=== PATIENT | female | born 1990 | race Caucasian/White ===

== ENCOUNTER 2016-12-13 20:40 | Emergency (ER) | payer MEDICAID ==
[2016-12-13 21:00] VITALS: BP 142/95
[2016-12-13] MEDS ORDERED: Cephalexin 250 MG Cap PO ONE (21:09)
--- NOTE | 2016-12-13 21:10 | EDM.PDOC ---
ED HPI GENERAL MEDICAL PROBLEM - General Chief Complaint: Lower Extremity Injury/Pain Stated Complaint: RT LEG INFECTED AND IT NUMB Time Seen by Provider: 12/13/16 20:50 Source of Information: Reports: Patient History Limitations: Reports: No Limitations - History of Present Illness INITIAL COMMENTS - FREE TEXT/NARRATIVE: Patient presents with complaints of lesion with red line moving up her leg since this morning. Quality: Reports: Stabbing, Other (intermittent pain at times. ) Improves with: Reports: None Worsens with: Reports: Movement Associated Symptoms: Denies: Nausea/Vomiting Left Lower Leg Pain Score (Numeric/FACES): 4 - Related Data Allergies Allergy/AdvReac Type Severity Reaction Status Date / Time gould flavor Allergy Intermediate Rash Verified 12/13/16 20:57 coconut oil Allergy Intermediate Rash Verified 12/13/16 20:57 raspberry [Raspberry] Allergy Intermediate Rash Verified 12/13/16 20:57 Sulfa (Sulfonamide Allergy Intermediate Rash Verified 12/13/16 20:57 Antibiotics) Latex, Natural Rubber Allergy Hives Verified 12/13/16 20:57 Home Meds: Home Meds Norethindrone-E.estradiol-Iron [Froilan Fe 1-20 Tablet] 1 each PO DAILY 12/26/15 [ History] traMADol [Ultram] 50 mg PO Q4H PRN #30 tab 12/26/15 [Rx] Past Medical History Cardiovascular History: Reports: Heart Murmur Respiratory History: Reports: Asthma HAND SINGER History: Reports: Musculoskeletal History: Reports: Fracture Psychiatric History: Reports: Depression - Infectious Disease History Infectious Disease History: Reports: C-Difficile - Past Surgical History Female Surgical History: Reports: Section Social & Family History - Tobacco Use Smoking Status *Q: Unknown Ever Smoked Second Hand Smoke Exposure: No - Caffeine Use Caffeine Use: Reports: Coffee, Tea - Alcohol Use Days Per Week of Alcohol Use: 0 - Recreational Drug Use Recreational Drug Use: No Review of Systems - Review of Systems Review Of Systems: See Below Constitutional: Denies: Chills, Diaphoresis, Fever Eyes: Reports: No Symptoms Ears: Reports: No Symptoms Nose: Reports: No Symptoms Mouth/Throat: Reports: No Symptoms Respiratory: Denies: Shortness of Breath, Wheezing, Cough, Sputum Cardiovascular: Reports: No Symptoms GI/Abdominal: Reports: No Symptoms Genitourinary: Reports: No Symptoms Musculoskeletal: Reports: Leg Pain Skin: Reports: Lesions, Other (dried raised lesion to right lower leg with red line moving up leg toward knee. ) Neurological: Denies: Headache, Numbness, Tingling, Weakness Psychiatric: Reports: No Symptoms ED EXAM, GENERAL - Physical Exam Exam: See Below Free Text/Narrative:: Megha presents to the [facility] with complaints of change to chronic lesion of her right lower leg with redness and red line traveling up her leg. She denies fever, chills, nausea, vomiting or insect bites. Exam Limited By: No Limitations General Appearance: Alert, WD/WN, No Apparent Distress Eye Exam: Bilateral Eye: EOMI, PERRL Ears: Normal External Exam, Normal Canal, Hearing Grossly Normal, Normal TMs Ear Exam: Bilateral Ear: Auricle Normal, Canal Normal, TM normal Nose: Normal Inspection, Normal Mucosa Throat/Mouth: Normal Inspection, Normal Lips, Normal Teeth, Normal Oropharynx, Normal Voice, No Airway Compromise Head: Atraumatic, Normocephalic Neck: Normal Inspection, Supple, Non-Tender, Full Range of Motion. No: Lymphadenopathy (R), Lymphadenopathy (L) Respiratory/Chest: No Respiratory Distress, Lungs Clear, Normal Breath Sounds, No Accessory Muscle Use, Chest Non-Tender Cardiovascular: Normal Peripheral Pulses, Regular Rate, Rhythm, No Edema, No Murmur Peripheral Pulses: 2+: Radial (L), Radial (R), Dorsalis Pedis (L), Dorsalis Pedis (R) Back Exam: Normal Inspection, Full Range of Motion. No: CVA Tenderness (R), CVA Tenderness (L) Extremities: Normal Range of Motion, Non-Tender, No Pedal Edema, Normal Capillary Refill, Other (dried plauque like irregular shaped lesion with slightly pink skin tone, line of erythema 1cm in width from lesion extending toward knee 15cm. No erythema, drainage, pustules. ) Neurological: Alert, Oriented, CN II-XII Intact, Normal Cognition, Normal Gait, Normal Reflexes, No Motor/Sensory Deficits Psychiatric: Normal Affect, Normal Mood Skin Exam: Warm, Dry, Other (change in chronic lesion as described demi. ) Lymphatic: No Adenopathy Course - Vital Signs Last Recorded V/S: Last Vital Signs Temp 36.5 C 12/13/16 20:55 Pulse 78 12/13/16 20:55 Resp 15 10/15/17 20:55 BP 142/95 H 12/13/16 20:55 Pulse Ox 98 12/13/16 20:55 - Orders/Labs/Meds Meds: Medications Discontinued Medications Generic Name Dose Route Start Last Admin Trade Name [place] PRN Reason Stop Dose Admin Cephalexin 1,000 mg 12/13/16 21:09 Keflex PO 12/13/16 21:10 ONETIME ONE Departure - Departure Time of Disposition: 21:16 Disposition: Home, Self-Care 01 Condition: Good Clinical Impression: Cellulitis of right lower leg, Changing skin lesion - Discharge Information Referrals: Selin Hopper NP [Primary Care Provider] - Forms: ED Department Discharge Additional Instructions: You were examined in the emergency room today and are being treated for cellulitis of the right lower extremity and change in lesion. Cephalexin 1000mg PO given in the emergency room tonight. Continue Cephalin 1000mg by mouth twice per day for 7 days. You can take acetaminophen and ibuprofen as needed for pain. Follow up with your primary provider by Wednesday this week for a recheck. It is in your best interest to have a biopsy of the lesion and/or dermatology referral if your primary care provider feels it is beneficial to you. Return for worsening issues or concerns. - Assessment/Plan Assessment:: Cellulitis right leg Changing skin lesion Plan: Patient treated for cellulitis of the right lower extremity and change in lesion. Cephalexin 1000mg PO given in the emergency room tonight. Continue Cephalin 1000mg by mouth twice per day for 7 days. She can take acetaminophen and ibuprofen as needed for pain. Follow up with her primary provider by Wednesday this week for a recheck. It is in her best interest to have a biopsy of the lesion and/or dermatology referral if her primary care provider feels it is beneficial. Return for worsening issues or concerns.
== END 2016-12-13 21:38 | disposition home or self-care (01) ==
LOC: JP.ED 20:40
DX: L03.115 Cellulitis of right lower limb (principal); J45.909 Unspecified asthma, uncomplicated; Z79.899 Other long term (current) drug therapy; Z91.018 Allergy to other foods; Z88.2 Allergy status to sulfonamides
CPT/HCPCS: 99283; A9270